=== PATIENT | male | born 1995 | race Caucasian/White ===

== ENCOUNTER 2016-11-04 15:36 | Emergency (ER) | payer SELFPAY ==
[2016-11-04 15:56] VITALS: BP 108/50; PULSE 100; RESP 16; TEMP 97.9; O2SAT 98
[2016-11-04] MEDS ORDERED: LETS SOLN TOPICAL 1 EA SYR TP ONE (15:56)
--- NOTE | 2016-11-04 17:53 | UCPHY ---
H & P Time Seen by Provider: 11/04/16 16:59 Patient Type: New HPI/ROS: CHIEF COMPLAINT: Multiple lacerations HISTORY OF PRESENT ILLNESS: 21-year-old male presents to urgent care with multiple lacerations. The patient states at 1:00 a.m., 16 hours ago, he apparently went through his glass sliding door. He sustained multiple lacerations. That evening the patient states that he and his friends plane wounds with hydrogen peroxide and then applied gorilla glue to some of the wounds. Denies hitting his head or losing consciousness. Denies any other trauma or injury. His last tetanus shot was within the last 10 years. ROS: He denies numbness or tingling in his fingers or toes, chest pain or difficulty breathing. Past Medical/Surgical History: Negative Social History: Single Smoking Status: Former smoker Physical Exam: On examination the patient has multiple lacerations including very superficial wants to the volar aspect of the left wrist measuring less than 1 cm. He also has a superficial laceration to the medial, distal aspect of the left 4th finger as well. Dorsal aspect of the right hand reveals very he superficial 1.5 cm laceration. There is a large, gaping the 4 cm laceration to the medial, mid right forearm. No active bleeding noted. No palpable bony tenderness. Full range of motion of his fingers. Normal sensation to light touch with normal 2 point discrimination. He does have tenderness with palpation around the gaping wound. I do not appreciate any obvious retained foreign body. There is also a small 1.5 cm laceration to the plantar aspect of the right foot. He has a normal gait. He has full range of motion of his upper lower extremities. No signs of trauma to his head, neck, chest or abdomen. Constitutional: Initial Vital Signs Temperature (C) 36.6 C 11/04/16 15:53 Heart Rate 100 11/04/16 15:53 Respiratory Rate 16 11/04/16 15:53 Blood Pressure 108/50 L 11/04/16 15:53 O2 Sat (%) 98 11/04/16 15:53 O2 Delivery Mode Room Air Allergies/Adverse Reactions: No Known Allergies Allergy (Verified 11/04/16 15:56) Home Medications: Medication Instructions Recorded Cephalexin [Keflex] 500 mg PO QID #28 cap 11/04/16 MDM/Departure - MDM Diagnostics: Declined x-ray. Procedures: Verbal consent was obtained from the patient. The 4 cm gaping laceration on the right mid forearm was anesthetized using 1% lidocaine with epinephrine. The wound was irrigated with saline, draped and explored to its base with a gloved finger. There were no deep structures involved. No tendon injury was identified. Because the wound is 16 hours old, the patient will be brought back for delayed primary closure after taking oral antibiotics, Keflex, for 72 hours. The wound repair was simple. The procedure was performed by myself. ED Course/Re-evaluation: 21-year-old male presents now 16 hours later dear after sustaining multiple lacerations walking through a sliding glass door. The patient understands that there is great risk of infection with closing the wounds now. He does have a large gaping wound to the right forearm that should be closed and therefore he will be placed on Keflex and return to urgent care or go to the emergency department after he has been taking oral antibiotics for 72 hours. Patient verbalized understanding and agreed. The other multiple superficial lacerations were thoroughly cleansed and dressed. Patient's tetanus shot was current. Patient declined x-ray of the right forearm to evaluate for retained foreign body. - Depart Disposition: Home, Routine, Self-Care Clinical Impression: Multiple lacerations Condition: Good Instructions: Laceration (ED), Acute Wounds (ED) Additional Instructions: Because your wounds are 16 hours old, the risk of infection is too great to close the wounds now. Keflex 500 mg 4 times daily for 1 week to prevent infection. Return to urgent care or go to the emergency department after you have been taking the oral antibiotics for at least 72 hours. Return to the emergency department sooner if you develop any signs or symptoms of infection such as redness, swelling, increased pain, fever, purulent drainage. Prescriptions: Cephalexin [Keflex] 500 mg PO QID #28 cap Referrals: PADMAJA MORALES [Primary Care Provider] - As per Instructions - PQRS PQRS Measurement: Not applicable
[2016-11-04] MEDS ORDERED: CEPHALEXIN 500 MG CAP PO ONE ×2 (19:18→19:30)
== END 2016-11-04 19:30 | disposition home or self-care (01) ==
LOC: CED 15:36
DX: S61.512A Laceration without foreign body of left wrist, initial encounter (principal); S61.215A Laceration without foreign body of left ring finger without damage to nail, initial encounter; S61.411A Laceration without foreign body of right hand, initial encounter; S51.811A Laceration without foreign body of right forearm, initial encounter; S91.311A Laceration without foreign body, right foot, initial encounter; W22.8XXA Striking against or struck by other objects, initial encounter; W26.8XXA Contact with other sharp object(s), not elsewhere classified, initial encounter; Y92.009 Unspecified place in unspecified non-institutional (private) residence as the place of occurrence of the external cause; Z87.891 Personal history of nicotine dependence
CPT/HCPCS: 12001-PO; 99203-PO; G0463-PO